=== PATIENT | male | born 1945 | race Caucasian/White ===

== ENCOUNTER 2018-07-04 07:56 | Inpatient (IN) | payer MEDICARE ==
[2018-07-04 08:14] LABS: #Basophils 0.1 thou/uL (0.0-0.2); #Eosinphils 0.1 thou/uL (0.0-0.7); #Lymphocytes 2.5 thou/uL (1.20-3.40); #Monocytes 0.8 thou/uL (0.11-0.59); #Neutrophils 3.7 thou/uL (1.40-6.50); %Eosinophils 1.6 % (0.0-10.0); %Lymphocytes 34.3 % (21.0-51.0); %Monocytes 11.4 % (0.0-10.0); %Neutrophils 51.8 % (42.0-75.0); Hemoglobin 16.9 g/dL (14.0-18.0); Mean Corpuscular HGB CONC 32.8 g/dL (32.0-36.0); Mean Corpuscular Hemoglobin 29.7 pg (27.0-31.0); Mean Corpuscular Volume 90.5 fL (78.0-98.0); Mean Platelet Volume 6.8 fL (7.4-10.4); Platelet Count 251 thou/uL (130-400); RBC Distribution Width 12.9 % (11.5-14.5); Red Blood Cell (RBC) Count 5.68 mill/uL (4.70-6.10); White Blood Cell (WBC) Count 7.2 thou/uL (4.8-10.8)
--- NOTE | 2018-07-04 08:32 | RAD ---
Chest AP view INDICATION: Chest pain and irregular heartbeat COMPARISON: None FINDINGS: Lungs:The lungs are clear Cardiac silhouette pulmonary vasculature:The cardiomediastinal silhouette appears within normal limit s. Pleural spaces:No pleural effusion or pneumothorax is demonstrated. Upper abdomen:No abnormality seen. Osseous structures: No acute osseous abnormality. IMPRESSION: No acute cardiopulmonary abnormality.
[2018-07-04 08:50] LABS: ALT (SGPT) 28 U/L (8-55); AST (SGOT) 18 U/L (5-34); Albumin 4.3 g/dL (3.4-4.8); Alkaline Phosphatase 74 U/L (40-150); Anion Gap 12 mmol/L (10-20); BUN (Urea Nitrogen) 17 mg/dL (8.4-25.7); Bilirubin, Total 1.9 mg/dL (0.2-1.2); CK (CPK) 88 U/L (30-200); Calc. Creatinine Clearance 0 mL/min (70-130); Calcium 9.4 mg/dL (7.8-10.44); Carbon Dioxide 26 mmol/L (23-31); Chloride 106 mmol/L (98-107); Estimated GFR-MDRD 64; Globulin 2.6 g/dL (2.4-3.5); Glucose 108 mg/dL (83-110); Lipase 169 U/L (8-78); Potassium 3.4 mmol/L (3.5-5.1); Protein, Total 6.9 g/dL (5.8-8.1); Sodium 141 mmol/L (136-145)
[2018-07-04 09:11] LABS: CKMB 2.6 ng/mL (0-6.6)
[2018-07-04] MEDS ORDERED: Diltiazem 125 MG in Sodium Chloride 0.9% 100 ML IVPB SCH ×3 (09:30→13:00)
--- NOTE | 2018-07-04 10:10 | PDOC.FPRHP ---
- History of Present Illness Chief Complaint: chest discomfort, palpitations History of Present Illness: 72 yo M w/ PMH of HTN and HLD w/ previous episode of a-fib 15 years ago presents to [facility] for chest discomfort and irregular heart beat that he first noticed yesterday evening. He denies associated NVDC, SOB, cough, fever, chills. On his previous episode of atrial fib he spontaneously coonverted and was never initiated on oral AC. He is currently resting comfortably in bed and does not report continued chest pressure or discomfort. His EKG showed a rate of 138 and he was subsequently given 20mg dilt IVP and his HR decreased to 110- 120s. ED Course: 20 mg IV dilt, 5mg/hr dilt drip - Allergies/Adverse Reactions Allergies Allergy/AdvReac Type Severity Reaction Status Date / Time No Known Allergies Allergy Verified 07/04/18 11:55 - Home Medications Medication Instructions Recorded Confirmed Type Aspirin [Aspir-Low] 162 mg PO DAILY 07/04/18 07/04/18 History Atorvastatin Calcium 10 mg PO HS 07/04/18 07/04/18 History Hydrochlorothiazide 50 mg PO DAILY 07/04/18 07/04/18 History - History PMHx: HTN, HLD, previous a fib PSHx: shoulder arhthroscopy FHx: NA Social: Non smoker, non drinker, no drugs. Worked as manufacturing design engineer. Recently relocated from [place]. - Review of Systems General: denies: fever/chills Eyes: denies: vision changes Respiratory: denies: cough, shortness of breath Cardiovascular: reports: chest pain, palpitation. denies: edema Gastrointestinal: denies: nausea, vomiting, diarrhea, constipation, abdominal pain Skin: denies: jaundice Musculoskeletal: denies: pain, tenderness Neurological: denies: numbness, syncope, weakness - Vital signs BP: 112/85 HR: 120 RR: 18 Tmax: 97.9 Pox: 98% on RA Wt: approx 75kG - Physical Exam Constitutional: NAD, awake, alert and oriented HEENT: normocephalic and atraumatic, PERRLA, EOMI, conjunctiva clear, grossly normal vision, grossly normal hearing Neck: supple, trachea midline, no LAD, no JVD, no bruits Heart: normal S1/S2, no murmurs/rubs/gallops, pulses present, no edema, other ( Irregularly irregular rate and rhythm) Lungs: CTAB, no respiratory distress, good air movement, no wheezing, no retractions Abdomen: soft, non-tender, bowel sounds present, no masses/distention, no hernias Musculoskeletal: ROM grossly normal Neurological: no focal deficit Skin: capillary refill <2 seconds Heme/Lymphatic: no petechia Psychiatric: normal mood and affect FMR H&P: Results - Labs Result Diagrams: 07/05/18 06:10 07/05/18 06:10 Lab results: WBC 7.2 thou/uL (4.8-10.8) 07/04/18 08:03 Hgb 16.9 g/dL (14.0-18.0) 07/04/18 08:03 Hct 51.4 % (42.0-52.0) 07/04/18 08:03 MCV 90.5 fL (78.0-98.0) 07/04/18 08:03 Plt Count 251 thou/uL (130-400) 07/04/18 08:03 Neutrophils % 51.8 % (42.0-75.0) 07/04/18 08:03 Sodium 141 mmol/L (136-145) 07/04/18 08:03 Potassium 3.4 mmol/L (3.5-5.1) L 07/04/18 08:03 Chloride 106 mmol/L (98-107) 07/04/18 08:03 Carbon Dioxide 26 mmol/L (23-31) 07/04/18 08:03 BUN 17 mg/dL (8.4-25.7) 07/04/18 08:03 Creatinine 1.12 mg/dL (0.7-1.3) 07/04/18 08:03 Glucose 108 mg/dL (83-110) 07/04/18 08:03 Calcium 9.4 mg/dL (7.8-10.44) 07/04/18 08:03 Total Bilirubin 1.9 mg/dL (0.2-1.2) H 07/04/18 08:03 AST 18 U/L (5-34) 07/04/18 08:03 ALT 28 U/L (8-55) 07/04/18 08:03 Alkaline Phosphatase 74 U/L (40-150) 07/04/18 08:03 Creatine Kinase 88 U/L (30-200) 07/04/18 08:03 CK-MB (CK-2) 2.6 ng/mL (0-6.6) 07/04/18 08:03 B-Natriuretic Peptide 302.8 pg/mL (0-100) H 07/04/18 08:03 Serum Total Protein 6.9 g/dL (5.8-8.1) 07/04/18 08:03 Albumin 4.3 g/dL (3.4-4.8) 07/04/18 08:03 Lipase 169 U/L (8-78) H 07/04/18 08:03 - EKG Interpretation EKG: Rate 138 atrial fibrillation with RVR - Radiology Interpretation Chest x-ray Status: image reviewed by me, report reviewed by me (EM) FMR H&P: A/P - Problem List (1) Atrial fibrillation with RVR Current Visit: No Status: Acute Code(s): I48.91 - UNSPECIFIED ATRIAL FIBRILLATION (2) HTN (hypertension) Current Visit: No Status: Acute Code(s): I10 - ESSENTIAL (PRIMARY) HYPERTENSION (3) HLD (hyperlipidemia) Current Visit: No Status: Acute Code(s): E78.5 - HYPERLIPIDEMIA, UNSPECIFIED (4) Elevated lipase Current Visit: No Status: Acute Code(s): R74.8 - ABNORMAL LEVELS OF OTHER SERUM ENZYMES (5) Elevated bilirubin Current Visit: No Status: Acute Code(s): R17 - UNSPECIFIED JAUNDICE (6) Elevated troponin Current Visit: No Status: Acute Code(s): R74.8 - ABNORMAL LEVELS OF OTHER SERUM ENZYMES - Plan 1) A fib RVR - admit IP telemetry - BP stable - s/p dilt -cont dilt drip and goal rate <100 - Cardiology has been consulted, appreciate recommendations 2) HTN: - hold HCTZ, cont dilt - replace K+ and check mag 3) HLD: resume statin 4) Elevated Lipase - asymptomatic and pt had elevated t bili as well - will repeat LFTs and bilit tomorrow - consider further workup OP 5) Elevated troponin: - trending - likely 2/2 a fib RVR/demand - cards consulted appreciate recommendations 6) Elevated BNP - echo ordered and pending Dispo: Fair, will admit to telemetry and cont dilt drip. Cards consulted, appreciate recommendations. Disposition/LOS: PCP: CC PPX: Lovenox GI: Tums PRN Code Status: Full Dispo: fair, expected LOS >2 days, dc plan home FMR H&P: Upper Level - Plan Date/Time: 07/04/18 1009 I, [], have evaluated this patient and agree with findings/plan as outlined by business analyst intern resident. Pertinent changes/additions are listed here. Addendum - Attending - Attending Attestation Date/Time: 07/05/18 [id number] I personally evaluated the patient and discussed the management with Dr. Benitez yesterday. I agree with the History, Examination, Assessment and Plan documented above with any addition or exceptions noted below.
[2018-07-04] MEDS ORDERED: Ondansetron PF 4 MG/2 ML Vial IVP PRN (11:48)
[2018-07-04] MEDS ORDERED: Calcium Carbonate 500 MG ChewTAB PO PRN (11:48)
[2018-07-04] MEDS ORDERED: Ondansetron ODT 4 MG TAB PO PRN (11:48)
[2018-07-04] MEDS ORDERED: Potassium Chloride 20 MEQ TAB PO SCH (12:00)
[2018-07-04 12:50] LABS: Troponin I 0.045 ng/mL (< 0.028)
[2018-07-04] MEDS ORDERED: Magnesium 2 GM/NS 0.9% 100 ML 2 GM in Premix Bag 1 BAG IVPB SCH (13:45)
[2018-07-04] MEDS ORDERED: Magnesium 2 GM/50 ML 2 GM in Premix Bag 1 BAG IVPB SCH (13:45)
[2018-07-04 15:18] LABS: Troponin I 0.049 ng/mL (< 0.028)
[2018-07-04] MEDS: Dronedarone HCl 400 MG TAB PO SCH (16:58)
[2018-07-04] MEDS: Enoxaparin Sodium 100 MG/ML SYRINGE SC SCH (20:52)
--- NOTE | 2018-07-04 20:52 | CON ---
DATE OF CONSULTATION: 07/04/2018 REASON FOR CONSULTATION: Atrial fibrillation with a rapid rate. HISTORY OF PRESENT ILLNESS: Mr. Christian is a very pleasant 72-year-old gentleman. The patient states when he went to bed last night, he knew something does not feel right. He was not aware of his heart racing, but it seemed to be irregular. When he woke up this morning, he did not feel well still, the pulse felt irregular. He has a vague discomfort in his chest, vague feeling of tightness, but no pain. Ultimately, he decided to go to the emergency room, where he was found to be in atrial fibrillation with a rapid rate. He was given intravenous diltiazem. The patient's rate initially came down with diltiazem 20 mg IV followed by 5 mg/hour, but gradually the heart rate came back up. Heart rate is better now after additional diltiazem 10 mg IV bolus and another 5 mg/hour. The patient had history of atrial fibrillation episode 15 years ago. There is some consideration for putting him on Coumadin at that time, but the patient did not wish to do that. He said he also underwent cardiac catheterization, was told that he had some coronary artery disease. Stent was advised according to the patient, but he did not want to do it as he did not have much in the way of symptoms. He has done very well from a cardiac standpoint up until the last night. OTHER PAST HISTORY: Hypertension controlled with hydrochlorothiazide. ALLERGIES: NONE KNOWN. MEDICATIONS: He takes: 1. Atorvastatin 10 mg a day. 2. Hydrochlorothiazide 50 mg a day. 3. Aspirin 162 mg a day. SOCIAL HISTORY: No significant alcohol or tobacco. REVIEW OF SYSTEMS: CONSTITUTIONAL: No significant weight gain or loss. VISION: No changes. HEARING: No changes. PULMONARY: No cough or wheezing. CARDIAC: As outlined above. GASTROINTESTINAL: No nausea, vomiting, or diarrhea. SKIN: No rashes. NEUROLOGIC: No unilateral weakness or numbness. PSYCHIATRIC: No unusual depression or anxiety. HEMATOLOGIC: No unusual bruising. GENITOURINARY: No burning with urination. PHYSICAL EXAMINATION: GENERAL: This is a delightful gentleman. VITAL SIGNS: Blood pressure is 122/96 and pulse is 120, asymptomatic at that rate. HEENT: Eyes, sclerae nonicteric. Mouth, mucous membranes moist. NECK: Supple. No lymphadenopathy. LUNGS: Clear. No wheezing, rales, or rhonchi. CARDIAC: Irregularly irregular. He is tachycardic. There is no murmur, rub, or gallop. ABDOMEN: Soft and nontender. EXTREMITIES: No clubbing or cyanosis. There is no significant edema. Good peripheral pulses. Good posterior tibial and dorsalis pedis. SKIN: Warm and dry. PSYCHIATRIC: Mood and affect normal. LABORATORY DATA: Troponin levels indeterminate at 0.090. Potassium is 3.4. IMAGING STUDIES: EKG, atrial fibrillation with a rapid rate. ASSESSMENT: 1. Atrial fibrillation with a rapid ventricular response. 2. History of hypertension. 3. History of coronary artery disease according to the patient. 4. CHADS-VASc 3 based on age, hypertension, and coronary artery disease. PLAN: 1. Anticoagulate with enoxaparin, ultimately consider Eliquis or similar medicine. 2. Intravenous diltiazem now. 3. Add Multaq. 4. The patient is not converted to sinus rhythm tomorrow. Plan transesophageal echo with cardioversion. Discussed the risks of this with this gentleman. He understands and wishes to proceed. This will not be necessary if he converts to sinus rhythm. 5. Replete hypokalemia. 6. We will also give magnesium. Job ID: [id number]
[2018-07-04] MEDS ORDERED: Enoxaparin Sodium 40 MG/0.4 ML SYRINGE SC SCH ×2 (21:00)
[2018-07-05 06:47] LABS: Mean Corpuscular HGB CONC 33.4 g/dL (32.0-36.0); Mean Corpuscular Hemoglobin 30.3 pg (27.0-31.0); Mean Corpuscular Volume 90.9 fL (78.0-98.0); Mean Platelet Volume 7.2 fL (7.4-10.4); Platelet Count 225 thou/uL (130-400); Red Blood Cell (RBC) Count 5.29 mill/uL (4.70-6.10); White Blood Cell (WBC) Count 6.9 thou/uL (4.8-10.8)
[2018-07-05 07:04] LABS: ALT (SGPT) 24 U/L (8-55); AST (SGOT) 15 U/L (5-34); Albumin 3.8 g/dL (3.4-4.8); Alkaline Phosphatase 72 U/L (40-150); Anion Gap 12 mmol/L (10-20); BUN (Urea Nitrogen) 17 mg/dL (8.4-25.7); Bilirubin, Total 2.5 mg/dL (0.2-1.2); Calc. Creatinine Clearance 0 mL/min (70-130); Calcium 8.8 mg/dL (7.8-10.44); Carbon Dioxide 27 mmol/L (23-31); Chloride 105 mmol/L (98-107); Cholesterol 132 mg/dl (< 200 Desired); Estimated GFR-MDRD 64; Globulin 2.5 g/dL (2.4-3.5); Glucose 104 mg/dL (83-110); HDL Cholesterol 33 mg/dL (>60 Neg Risk); LDL Cholesterol, Calculated 69 mg/dL; Potassium 3.2 mmol/L (3.5-5.1); Protein, Total 6.3 g/dL (5.8-8.1); Sodium 141 mmol/L (136-145); Triglycerides 150 mg/dL (Less than 150)
[2018-07-05] MEDS: Dronedarone HCl 400 MG TAB PO SCH ×2 (08:00→16:25)
[2018-07-05] MEDS: Enoxaparin Sodium 100 MG/ML SYRINGE SC SCH (08:00)
[2018-07-05 08:11] LABS: Band 1 % (5-11); Lymphocytes 33 % (21-51); MDiff Complete? YES; Monocytes 7 % (0-10); Neutrophil 59 % (42-75); RBC Morphology Normal
[2018-07-05] MEDS ORDERED: Potassium Chloride 20 MEQ TAB PO SCH (08:15)
[2018-07-05] MEDS ORDERED: Enoxaparin Sodium 40 MG/0.4 ML SYRINGE SC SCH (09:00)
[2018-07-05] MEDS ORDERED: PROPOFOL 0 ML ONE (10:44)
[2018-07-05] MEDS ORDERED: Ketamine 50 MG/ML (10ML VIAL) ONE (10:44)
--- NOTE | 2018-07-05 10:50 | PDOC.FM ---
- Subjective Subjective: TERESA overnight. Pt remains in a fib @ rate of 100-120. Denies symptoms. No cp, sob, NVDC. - Objective Vital Signs & Weight: Vital Signs (12 hours) Temp Pulse Resp BP Pulse Ox 07/05/18 07:37 97.6 F 61 20 102/74 94 L 07/05/18 04:00 98.1 F 79 20 93/55 L 94 L 07/05/18 00:00 99 20 104/72 Weight Weight 207.3 g I&O: 07/04/18 07/05/18 07/06/18 06:59 06:59 06:59 Intake Total 720 Output Total 400 Balance 320 Result Diagrams: 07/05/18 06:10 07/05/18 06:10 Phys Exam - Physical Examination Constitutional: NAD HEENT: PERRLA, sclera anicteric Neck: no nodes, no JVD Respiratory: no wheezing, no rales, no rhonchi, clear to auscultation bilateral Cardiovascular: no significant murmur, no rub, irregular Gastrointestinal: soft, non-tender, no distention, positive bowel sounds Musculoskeletal: no edema, pulses present Neurological: non-focal, moves all 4 limbs Psychiatric: normal affect Dx/Plan (1) Atrial fibrillation with RVR Code(s): I48.91 - UNSPECIFIED ATRIAL FIBRILLATION Status: Acute (2) HTN (hypertension) Code(s): I10 - ESSENTIAL (PRIMARY) HYPERTENSION Status: Acute (3) HLD (hyperlipidemia) Code(s): E78.5 - HYPERLIPIDEMIA, UNSPECIFIED Status: Acute (4) Elevated lipase Code(s): R74.8 - ABNORMAL LEVELS OF OTHER SERUM ENZYMES Status: Acute (5) Elevated bilirubin Code(s): R17 - UNSPECIFIED JAUNDICE Status: Acute (6) Elevated troponin Code(s): R74.8 - ABNORMAL LEVELS OF OTHER SERUM ENZYMES Status: Acute - Plan Plan: 1) A fib RVR - admit IP telemetry - BP stable - s/p dilt -cont dilt drip and goal rate <100 - Cardiology has been consulted, appreciate recommendations - will plan for LION and cardioversion today 2) HTN: - hold HCTZ, cont dilt - replace K+ and check mag - replace K+ 3) HLD: resume statin, increase to moderate to high intensity 4) Elevated Lipase - asymptomatic and pt had elevated t bili as well - will repeat LFTs and bilit tomorrow - consider further workup OP - increase in tBili, pt remains asymptomatic 5) Elevated troponin: - trending - likely 2/2 a fib RVR/demand - cards consulted appreciate recommendations 6) Elevated BNP - echo ordered and pending Dispo: Fair, cont dilt for rate control and await LION and cardioversion scheduled for this afternoon. Will start mod intensity statin this evening. Addendum - Attending - Attending Attestation Date/Time: 07/05/18 1656 I personally evaluated the patient and discussed the management with Dr. Rowley. I agree with the History, Examination, Assessment and Plan documented above with any addition or exceptions noted below.
[2018-07-05] MEDS ORDERED: PROPOFOL 20 ML ONE (13:49)
[2018-07-05 15:42] VITALS: BP 127/94; TEMP 97.5
[2018-07-05 17:52] VITALS: BMI 29.7
[2018-07-05] MEDS ORDERED: Metoprolol Tartrate 50 MG TAB PO SCH ×2 (18:00→21:00)
--- NOTE | 2018-07-05 18:14 | PRG ---
DATE OF SERVICE: 07/05/2018 SUBJECTIVE: Mr. Christian spontaneously converted to sinus rhythm today. We brought him back down for a possible cardioversion and just before the transesophageal echo started, he converted to sinus rhythm. OBJECTIVE: GENERAL: The patient is asymptomatic. He is doing well. VITAL SIGNS: Now his blood pressure 127/94, pulse 77 regular. LUNGS: Clear. CARDIAC: Normal S1 and normal S2. ABDOMEN: Soft and nontender. EXTREMITIES: There is no edema. ASSESSMENT: 1. Paroxysmal atrial fibrillation. 2. History of hypertension. 3. Age 72. PLAN: 1. He is currently CHADS-VASc 2. He will be CHADS-VASc 3 this summer. Plan, recommended long-term anticoagulation with Eliquis 5 mg orally twice a day. 2. Toprol-XL 50 mg a day. 3. Stop aspirin. 4. Can come back and see us in the office in 2 or 3 weeks. The patient is reluctant to start anticoagulation. 5. He has approximately 3% risk of stroke per year. I would recommend anticoagulation. Job ID: [id number]
--- NOTE | 2018-07-05 18:35 | PDOC.EVN ---
Event Note - Event Note Event Note: Pt converted to NSR while waiting for cardioversion. Discussed with pt importance of continued OP f/u and establishing with PCP given elevated lipase and Bili, pt agreeable. Cards has recommended eliquis BID and toprol XL 50mg/ day. Rx sent to pharmacy, pt ready for discharge.
[2018-07-05] MEDS ORDERED: Atorvastatin Calcium 20 MG TAB PO SCH (21:00)
[2018-07-05] MEDS ORDERED: Apixaban 5 MG TAB PO SCH (21:00)
[2018-07-06] MEDS ORDERED: Potassium Chloride 20 MEQ TAB PO SCH (08:00)
== END 2018-07-05 18:58 | disposition home or self-care (01) | DRG 309 ==
LOC: ERS 07:56 → 2SW 11:46 → OBSVTOIN 11:46
PROVIDERS: ADMIT Student in an Organized Health Care Education/Training Program; ATTEND Student in an Organized Health Care Education/Training Program
DX: I48.0 Paroxysmal atrial fibrillation (principal); R17 Unspecified jaundice; I10 Essential (primary) hypertension; E78.5 Hyperlipidemia, unspecified; R74.8 Abnormal levels of other serum enzymes; I25.10 Atherosclerotic heart disease of native coronary artery without angina pectoris; E87.6 Hypokalemia; Z79.82 Long term (current) use of aspirin; Z98.890 Other specified postprocedural states
CPT/HCPCS: 36415; 71045; 80053; 80061; 82550; 82553; 83690; 83735; 83880; 84443; 84484; 85007; 85025; 85027; 93005; 93010; 93306; 96365; 96376; J1650; J2704; J3475; J3490

== ENCOUNTER 2019-10-01 22:47 | Inpatient (IN) | payer MEDICARE, OTHER ==
[2019-10-01 23:15] LABS: #Basophils 0.1 thou/uL (0.0-0.2); #Eosinphils 0.1 thou/uL (0.0-0.7); #Lymphocytes 2.7 thou/uL (1.20-3.40); #Monocytes 0.8 thou/uL (0.11-0.59); #Neutrophils 3.4 thou/uL (1.40-6.50); %Basophils 1.7 % (0.0-1.0); %Eosinophils 1.8 % (0.0-10.0); %Monocytes 11.6 % (0.0-10.0); %Neutrophils 46.8 % (42.0-75.0); Hemoglobin 16.3 g/dL (14.0-18.0); Mean Corpuscular HGB CONC 33.6 g/dL (32.0-36.0); Mean Corpuscular Hemoglobin 30.2 pg (27.0-31.0); Mean Corpuscular Volume 89.9 fL (78.0-98.0); Mean Platelet Volume 7.1 fL (7.4-10.4); Platelet Count 215 thou/uL (130-400); RBC Distribution Width 12.8 % (11.5-14.5); Red Blood Cell (RBC) Count 5.39 mill/uL (4.70-6.10); White Blood Cell (WBC) Count 7.2 thou/uL (4.8-10.8)
--- NOTE | 2019-10-01 23:28 | RAD ---
XR Chest 1 View Portable HISTORY: Atrial fibrillation, chest pain, tachycardia COMPARISON: 07/04/2018 FINDINGS: The heart size is normal. The aorta is tortuous. The lungs are well expanded without focal areas of consolidation, pneumothorax or pleural effusions. IMPRESSION: No radiographic evidence of acute cardiopulmonary process.
[2019-10-01 23:30] LABS: ALT (SGPT) 24 U/L (8-55); AST (SGOT) 22 U/L (5-34); Albumin 4.2 g/dL (3.4-4.8); Alkaline Phosphatase 67 U/L (40-110); Anion Gap 13 mmol/L (10-20); BUN (Urea Nitrogen) 19 mg/dL (8.4-25.7); Bilirubin, Total 1.7 mg/dL (0.2-1.2); Calc. Creatinine Clearance 0 mL/min (70-130); Calcium 9.4 mg/dL (7.8-10.44); Carbon Dioxide 24 mmol/L (23-31); Chloride 106 mmol/L (98-107); Estimated GFR-MDRD 58; Globulin 2.6 g/dL (2.4-3.5); Glucose 99 mg/dL (83-110); Potassium 3.7 mmol/L (3.5-5.1); Protein, Total 6.8 g/dL (5.8-8.1); Sodium 139 mmol/L (136-145)
[2019-10-01] MEDS ORDERED: Diltiazem 125 MG/25 ML ONE (23:37)
[2019-10-01 23:53] LABS: CKMB 1.8 ng/mL (0-6.6)
[2019-10-02] MEDS ORDERED: Metoprolol Tartrate 5 MG/5 ML VIAL IVP SCH (00:46)
[2019-10-02] MEDS ORDERED: Diltiazem 125 MG in Sodium Chloride 0.9% 100 ML IVPB SCH ×2 (01:00→08:53)
[2019-10-02] MEDS ORDERED: Apixaban 5 MG TAB PO SCH (01:10)
[2019-10-02 01:41] VITALS: BMI 30.2
--- NOTE | 2019-10-02 01:45 | HP ---
REASON FOR ADMISSION: Palpitation. HISTORY OF PRESENT ILLNESS: This is a 74-year-old male patient, who is known to have paroxysmal atrial fibrillation. Today, he felt a bit of chest tightness. He does have a device that can detect atrial fibrillation and sure enough when he placed that device and connected to his phone davidson, it showed an atrial fibrillation with a heart rate of 140 beats per minute. He did not feel too bad, but he was prompted by his son to come to the hospital. He has Eliquis, but does not take it on a regular basis. He did take one tablet before arriving to the hospital. Reviewing his records, the patient was admitted to our hospital approximately a year and three months ago with similar presentation. He was seen by Dr. Leary of Cardiology. He was scheduled for cardioversion and LION; however, before undergoing that procedure, he converted to sinus rhythm. PAST MEDICAL HISTORY: 1. Atrial fibrillation. 2. High blood pressure. 3. High cholesterol. SOCIAL HISTORY: Does not smoke. Does not drink alcohol. FAMILY HISTORY: Negative for heart disease. REVIEW OF SYSTEMS: All systems reviewed except the above-mentioned palpitation, found to be negative. PHYSICAL EXAMINATION: GENERAL: Awake, alert, and oriented, does not appear in distress. VITAL SIGNS: His blood pressure is 113/81, heart rate between 106 to 130, and saturating 97% room air. HEENT: Head is nontraumatic and normocephalic. Pupils equal and reactive. Extraocular movements are intact. Nonicteric sclerae. Well injected conjunctivae. Oral mucosa normal. Nasal mucosa normal. NECK: Supple. No adenopathy. No murmur. Thyroid is not palpable. Trachea is midline. No supraclavicular lymphadenopathy. HEART: S1 and S2. Irregular. No murmur. No gallops. No friction rubs. No displacement of PMI. LUNGS: Clear to auscultation bilaterally. No wheezes. No rhonchi. No crackles. ABDOMEN: Bowel sounds are positive. Nontender abdomen. No visceromegaly. No lower extremity edema. No cyanosis. NEURO: Cranial nerves 2 through 12 within normal limits. Normal motor function. Normal sensory function. Normal reflexes. LABORATORY DATA: Blood work shows WBC of 7.2, hemoglobin of 16.3, and platelets of 215. Sodium 139, potassium 3.7, bicarb of 24, BUN 19, and creatinine 1.21. A chest x-ray shows no cardiopulmonary process. EKG shows rapid atrial fibrillation. ASSESSMENT AND PLAN: This is a 74-year-old male patient, who is presenting with recurrence of his atrial fibrillation. He was started on a Cardizem drip in the ER, but his blood pressure did drop, so currently he is on low-dose Cardizem of 2.5 per hour. His heart rate remains uncontrolled, but on the other hand, patient is not feeling any chest pain, and he is not short of breath. Cardiac. The patient will be admitted to telemetry. I will administer IV Lopressor, see if he responds to that. His blood pressure is currently higher than before and improved, so we can try IV Lopressor and see if that helps him. Meanwhile, will be cycle his cardiac enzymes. We will keep him on the low-dose Cardizem drip. We will ask Cardiology to see him, we will restart him on his Eliquis. He did get his initial dose at home and we will give him a dose tonight and start him on Eliquis b.i.d. For deep venous thrombosis prophylaxis, he has been on Eliquis. I am awaiting his med rec to be done, so I could reconcile it. I did discuss with him his code status. He wishes to be a full code. Job ID: [id number]
[2019-10-02 02:07] LABS: #Basophils 0.1 thou/uL (0.0-0.2); #Eosinphils 0.2 thou/uL (0.0-0.7); #Lymphocytes 2.7 thou/uL (1.20-3.40); #Monocytes 0.7 thou/uL (0.11-0.59); #Neutrophils 3.6 thou/uL (1.40-6.50); %Basophils 1.5 % (0.0-1.0); %Eosinophils 2.6 % (0.0-10.0); %Lymphocytes 36.8 % (21.0-51.0); %Monocytes 9.9 % (0.0-10.0); %Neutrophils 49.3 % (42.0-75.0); Hemoglobin 16.1 g/dL (14.0-18.0); Mean Corpuscular HGB CONC 33.3 g/dL (32.0-36.0); Mean Corpuscular Hemoglobin 30.2 pg (27.0-31.0); Mean Corpuscular Volume 90.7 fL (78.0-98.0); Mean Platelet Volume 7.4 fL (7.4-10.4); Platelet Count 210 thou/uL (130-400); RBC Distribution Width 12.9 % (11.5-14.5); Red Blood Cell (RBC) Count 5.31 mill/uL (4.70-6.10); White Blood Cell (WBC) Count 7.4 thou/uL (4.8-10.8)
[2019-10-02 02:37] LABS: Anion Gap 13 mmol/L (10-20); BUN (Urea Nitrogen) 18 mg/dL (8.4-25.7); Calc. Creatinine Clearance 79 mL/min (70-130); Calcium 9.2 mg/dL (7.8-10.44); Carbon Dioxide 23 mmol/L (23-31); Chloride 109 mmol/L (98-107); Estimated GFR-MDRD 66; Glucose 103 mg/dL (83-110); Potassium 3.8 mmol/L (3.5-5.1); Sodium 141 mmol/L (136-145)
[2019-10-02] MEDS ORDERED: Metoprolol Tartrate 5 MG/5 ML VIAL IVP PRN (07:22)
[2019-10-02] MEDS: Apixaban 5 MG TAB PO SCH ×2 (08:46→20:40)
[2019-10-02] MEDS ORDERED: Magnesium 2 GM/50 ML 2 GM in Premix Bag 1 BAG IVPB SCH (09:00)
[2019-10-02] MEDS ORDERED: Potassium Chloride 20 MEQ TAB PO SCH (09:00)
--- NOTE | 2019-10-02 09:40 | CON ---
DATE OF CONSULTATION: 10/02/2019 REASON FOR CONSULTATION: Recurrent atrial fibrillation with a rapid ventricular response. HISTORY OF PRESENT ILLNESS: Mr. Christian is a 74-year-old man. He initially presented with atrial fibrillation in June of 2018. At that time, he had atrial fibrillation with a rapid ventricular response. The patient was given anticoagulation and intravenous diltiazem. We actually had him down the next day to do a transesophageal echo and cardioversion, when he converted spontaneously and was released home. Due to his CHADS-VASc score, he was advised to take Eliquis twice a day, but he did not wish to do that. He declined that. Therefore, we gave him Eliquis to take if he had recurrent atrial fibrillation. The patient yesterday had the onset of feeling his heart racing or at least it felt irregular. He had a vague discomfort in his chest. He had a monitor that showed he was in atrial fibrillation with a rapid rate. On his home davidson, his heart rate was 140. The patient now is resting comfortably. He is on low-dose diltiazem. MEDICATIONS: 1. The patient was taking lisinopril. 2. He was taking hydrochlorothiazide. 3. He was taking atorvastatin. PAST MEDICAL HISTORY: The patient did have a history of coronary artery disease. He said he had a catheterization in the past, they discussed a stent with him, but he said he declined it. SOCIAL HISTORY: No alcohol or tobacco. REVIEW OF SYSTEMS: CONSTITUTIONAL: No significant weight gain or loss. VISION: No changes. HEARING: No changes. PULMONARY: No cough or wheezing. GASTROINTESTINAL: No nausea, vomiting, or diarrhea. SKIN: No rashes. ALLERGIES: NONE KNOWN. FAMILY HISTORY: Negative for heart disease at a young age. PHYSICAL EXAMINATION: GENERAL: This is a pleasant 74-year-old gentleman, resting comfortably, asymptomatic now. Blood pressure 108/58. Pulse is still fast, 120 to 130, atrial fibrillation. LUNGS: Clear. CARDIAC: Irregularly irregular. There is no murmur, rub, or gallop. ABDOMEN: Soft and nontender. EXTREMITIES: No clubbing or cyanosis. There is no edema. DIAGNOSTIC STUDIES: EKG, atrial fibrillation with a rapid rate. Troponin levels are indeterminate at 0.72. Bilirubin is high at 1.7, that has been high also on the previous admission. Creatinine went from 1.2 to 1.08. ASSESSMENT: 1. Atrial fibrillation with a rapid ventricular response. 2. Underlying coronary artery disease. 3. Echocardiogram done in April 2018, ejection fraction 55% to 60%. 4. Indeterminate troponin, probably demand ischemia. PLAN: 1. I would recommend he take apixaban twice a day due to CHADS-VASc score being elevated. He has vascular disease, hypertension, and age, put him at a CHADS-VASc 4. He says he is reluctant to take that twice a day, but that is my recommendation. 2. Increase diltiazem to 5 mg/hour. 3. Add beta blockers. 4. Replete potassium. 5. We will also give magnesium. 6. If he does not convert to sinus rhythm tomorrow, transesophageal echo and cardioversion. Job ID: [id number]
[2019-10-02] MEDS: Metoprolol Tartrate 25 MG TAB PO SCH ×2 (09:46→20:42)
[2019-10-02] MEDS ORDERED: Sodium Chloride 0.9% 500 ML IV SCH (10:45)
[2019-10-02 13:16] LABS: SARS-CoV-2 MS2 Positive; SARS-CoV-2 N Gene Negative; SARS-CoV-2 S Gene Negative; SARS-CoV-2 by NAA Not Detected (NotDetected); SARS-CoV-2 orf1ab Negative
--- NOTE | 2019-10-02 17:10 | PDOC.HOSPP ---
- Subjective Encounter Date: 10/02/19 Subjective: Doing well. He has no complaints. Reiterates that he is not thrilled about taking the Eliquis twice daily. - Objective Vital Signs & Weight: Vital Signs (12 hours) Temp Pulse Resp BP BP Pulse Ox 10/02/19 16:08 97.2 F L 92 18 103/68 96 10/02/19 11:17 97.7 F 98 16 96/66 96 10/02/19 07:43 97.3 F L 115 H 18 108/58 L 95 Weight Weight 210 lb 8 oz I&O: 10/01/19 10/02/19 10/03/19 06:59 06:59 06:59 Intake Total 178 Output Total 315 Balance -137 Result Diagrams: 10/02/19 02:01 10/02/19 02:01 Hospitalist ROS - Medication Medications: Active Medications Generic Name Dose Route Start Last Admin Trade Name Freq PRN Reason Stop Dose Admin Apixaban 5 mg 10/02/19 09:00 10/02/19 08:46 Eliquis PO 5 mg BID TERRANCE Administration Metoprolol Tartrate 25 mg 10/02/19 09:00 10/02/19 09:46 Lopressor PO 25 mg BID TERRANCE Administration - Exam General Appearance: NAD, awake alert Heart: no murmur, no rubs, irregular Respiratory: CTAB, no wheezes, no rales, no ronchi, normal chest expansion, no tachypnea, normal percussion Gastrointestinal: soft, non-tender, non-distended, normal bowel sounds, no palpable masses, no hepatomegaly, no splenomegaly, no bruit Extremities: no cyanosis, no clubbing, no edema Skin: normal turgor Musculoskeletal: normal tone, normal strength, no muscle wasting Psychiatric: normal affect, normal behavior, A&O x 3 Hosp A/P (1) Atrial fibrillation with RVR Code(s): I48.91 - UNSPECIFIED ATRIAL FIBRILLATION Status: Acute (2) HLD (hyperlipidemia) Code(s): E78.5 - HYPERLIPIDEMIA, UNSPECIFIED Status: Acute (3) HTN (hypertension) Code(s): I10 - ESSENTIAL (PRIMARY) HYPERTENSION Status: Acute (4) Myocardial infarction Code(s): I21.9 - ACUTE MYOCARDIAL INFARCTION, UNSPECIFIED Status: Acute Qualifiers: Myocardial infarction type: type 2 Qualified Code(s): I21.A1 - Myocardial infarction type 2 (5) Elevated bilirubin Code(s): R17 - UNSPECIFIED JAUNDICE Status: Chronic - Plan Atrial fibrillation with rapid ventricular response: Patient had an episode approximately 1 year ago. He is currently on diltiazem drip. He was also given additional beta-blockers. He had borderline hypotension with that today. His lisinopril was not continued. Patient does not spontaneously convert to sinus rhythm tomorrow he will likely undergo electrical cardioversion with cardiology. Continue anticoagulation to the level the patient is comfortable with. Hypertension: Patient had borderline hypotension given the medications for the A. fib. Holding the lisinopril. Holding HCTZ. Hyperlipidemia: Continue rosuvastatin. Hypothyroidism: Continue his home dose of levothyroxine.
[2019-10-02] MEDS ORDERED: Aspirin 81 mg Enteric Coated Tablet PO SCH (21:00)
[2019-10-03] MEDS ORDERED: Levothyroxine Sodium 50 MCG TAB PO SCH ×2 (06:00)
[2019-10-03 07:44] VITALS: BP 130/85; TEMP 97.6
[2019-10-03] MEDS ORDERED: Potassium Chloride 20 MEQ TAB PO SCH (09:00)
[2019-10-03] MEDS ORDERED: Hydrochlorothiazide 25 MG TAB PO SCH (09:00)
[2019-10-03] MEDS ORDERED: Lisinopril 2.5 MG TAB PO SCH ×2 (09:00)
[2019-10-03] MEDS: Apixaban 5 MG TAB PO SCH (09:10)
--- NOTE | 2019-10-03 11:21 | PRG ---
DATE OF SERVICE: 10/03/2019 SUBJECTIVE: Mr. Christian converted spontaneously to a junctional rhythm, then sinus rhythm this morning. The cardioversion was not necessary. The patient is feeling well now. He was started on low-dose beta blockers. OBJECTIVE: LUNGS: Clear. CARDIAC: Normal S1, normal S2. ABDOMEN: Soft, nontender. EXTREMITIES: Only minimal edema. ASSESSMENT: 1. Paroxysmal atrial fibrillation with a rapid ventricular response. 2. Hypertension. 3. Hypokalemia. PLAN: 1. We would recommend increasing lisinopril to 5 mg a day. 2. Aspirin 81 mg a day. 3. Apixaban 5 mg twice a day for at least a month. 4. My recommendation to this gentleman was to continue long-term Eliquis, but he is uncertain if he wishes to do that. 5. Metoprolol succinate 25 mg a day. 6. Stop hydrochlorothiazide and potassium. In view of the lack of diuretic, he should not need the potassium. 7. The patient would be asked to see us in the office in a month. Questions were answered. Explained the situation in detail with the patient. Job ID: [id number]
[2019-10-03] MEDS ORDERED: Aspirin 81 mg Enteric Coated Tablet PO SCH (21:00)
[2019-10-03] MEDS ORDERED: Rosuvastatin 20 MG TAB PO SCH (21:00)
--- NOTE | 2019-10-04 14:39 | DIS ---
DATE OF ADMISSION: 10/02/2019 DATE OF DISCHARGE: 10/03/2019 DISCHARGE DIAGNOSES: 1. Paroxysmal atrial fibrillation. 2. Coronary artery disease. 3. Non-ST elevation myocardial infarction type 2 secondary to demand ischemia related to atrial fibrillation with rapid ventricular response. HISTORY: The patient is a 74-year-old male with a history of prior paroxysmal atrial fibrillation that spontaneously converted immediately prior to beginning getting electro-cardioverted. He was supposed to be on anticoagulation with Eliquis. However, the patient is a bit reluctant to take that at full dose. He was doing well until he had a recurrence of the atrial fibrillation and presented to the emergency department. He was started on IV diltiazem and admitted to the hospital. HOSPITAL COURSE: The patient was seen in consultation by Dr. Leary. The plan was for continued IV diltiazem and DCCV. However, the patient spontaneously cardioverted and felt completely back to his baseline. He was still resistant to taking full dose anticoagulation and Dr. Leary made some recommendations regarding medications and felt the patient was stable for discharge to have outpatient followup. The patient had serial troponins, which were minimally elevated, but downtrending and a normal TSH. PHYSICAL EXAMINATION: VITAL SIGNS: On the day of discharge, temperature is 97.6, pulse 68, respirations 16, O2 saturation 96% on room air, and blood pressure 130/85. He was awake and alert. HEART: Regular. LUNGS: Clear. ABDOMEN: Benign. EXTREMITIES: Had no edema. DISPOSITION: The patient is discharged to home. DIET: He is to have a heart-healthy diet. ACTIVITY: As tolerated. MEDICATIONS: He will be on; 1. Metoprolol 25 mg p.o. daily. 2. Eliquis 5 mg b.i.d. 3. Rosuvastatin 20 mg daily. 4. Levothyroxine 50 mcg daily. 5. Lisinopril 2.5 mg daily. 6. Aspirin 162 mg daily. He is to discontinue his hydrochlorothiazide and potassium. FOLLOWUP: He is to follow up with Dr. Leary as instructed. TIME SPENT: Time spent in discharge activities was greater than 30 minutes. Job ID: [id number] MTDD
== END 2019-10-03 11:26 | disposition home or self-care (01) | DRG 282 ==
LOC: ERS 22:47 → 2NO 10-02 00:06
PROVIDERS: ADMIT Internal Medicine; ATTEND Internal Medicine
DX: I48.0 Paroxysmal atrial fibrillation (principal); I21.A1 Myocardial infarction type 2; Z20.828 Contact with and (suspected) exposure to other viral communicable diseases; E03.9 Hypothyroidism, unspecified; E78.5 Hyperlipidemia, unspecified; E78.00 Pure hypercholesterolemia, unspecified; I10 Essential (primary) hypertension; I25.10 Atherosclerotic heart disease of native coronary artery without angina pectoris; E87.6 Hypokalemia; Z79.899 Other long term (current) drug therapy; Z79.890 Hormone replacement therapy
CPT/HCPCS: 36415; 71045; 80048; 80053; 82553; 84443; 84484; 85025; 87635; 93005; 96365; J3475; J3490; U0003

== ENCOUNTER 2019-12-02 05:32 | Inpatient (IN) | payer MEDICARE, OTHER ==
[2019-12-02 06:03] LABS: #Basophils 0.1 thou/uL (0.0-0.2); #Eosinphils 0.1 thou/uL (0.0-0.7); #Lymphocytes 1.7 thou/uL (1.20-3.40); #Neutrophils 6.3 thou/uL (1.40-6.50); %Basophils 0.7 % (0.0-1.0); %Eosinophils 1.6 % (0.0-10.0); %Lymphocytes 18.3 % (21.0-51.0); %Monocytes 10.8 % (0.0-10.0); %Neutrophils 68.6 % (42.0-75.0); Hemoglobin 16.1 g/dL (14.0-18.0); Mean Corpuscular HGB CONC 33.2 g/dL (32.0-36.0); Mean Corpuscular Hemoglobin 30.2 pg (27.0-31.0); Mean Corpuscular Volume 90.9 fL (78.0-98.0); Mean Platelet Volume 7.4 fL (7.4-10.4); Platelet Count 200 thou/uL (130-400); RBC Distribution Width 12.9 % (11.5-14.5); Red Blood Cell (RBC) Count 5.32 mill/uL (4.70-6.10); White Blood Cell (WBC) Count 9.2 thou/uL (4.8-10.8)
[2019-12-02 06:24] LABS: ALT (SGPT) 20 U/L (8-55); AST (SGOT) 15 U/L (5-34); Albumin 3.9 g/dL (3.4-4.8); Alkaline Phosphatase 69 U/L (40-110); Anion Gap 14 mmol/L (10-20); BUN (Urea Nitrogen) 13 mg/dL (8.4-25.7); CK (CPK) 47 U/L (30-200); Calc. Creatinine Clearance 0 mL/min (70-130); Calcium 8.2 mg/dL (7.8-10.44); Carbon Dioxide 20 mmol/L (23-31); Chloride 110 mmol/L (98-107); Estimated GFR-MDRD 75; Glucose 98 mg/dL (83-110); Lipase 41 U/L (8-78); Potassium 3.6 mmol/L (3.5-5.1); Protein, Total 5.9 g/dL (5.8-8.1); Sodium 140 mmol/L (136-145)
[2019-12-02] MEDS ORDERED: Nitroglycerin 0.4 MG TAB 1 EACH ONE (07:07)
--- NOTE | 2019-12-02 07:30 | PDOC.HHP ---
Hospitalist HPI - History of Present Illness Chest pain, Afib rvr History of Present Illness: PCP: Dr. Rainey ([place]and[place]) The patient is a 74-year-old male with a past medical history significant for atrial fibrillation (on Eliquis), hypertension, hyperlipidemia and hypothyroidism that presents to the emergency department via EMS for the above complaint. Patient reports developing heart palpitations for the past 2 days. He reports that when he checks his pulse, he can feel that is irregular, and he is well aware that he is usually in A. fib when this happens. On Monday, he called his global compensation analyst, and he was instructed to double down on his home dose of metoprolol. He normally takes metoprolol 25 mg every evening, so he started taking it morning and evening. This had no effect on his symptoms. He still reports heart palpitations and an irregular pulse. Monday afternoon, he developed chest pain, located midsternum, described as pressure, increasing in intensity throughout the day, exacerbated with deep inhalation, and relieved by nothing. He reports that he is never had this sensation before. Denies any swelling to lower extremities. Recently stopped his HCTZ. He denies any history of COPD/asthma. No history of DVT/PE. He denies any illicit drug use. He has no family cardiac history. For this reason he called EMS. ED Course: VITAL SIGNS MonDec 02, 2019 05:46 VINOD Schuster Mikayla BP: 157/114, Pulse: 121, Resp: 20, Temp: 98.2 (Oral), Pain: 8, O2 sat: 96 on (Room Air), Time: 12/02/2019 05:46. VITAL SIGNS MonDec 02, 2019 06:09 VINOD Schuster Mikayla BP: 154/111, Pulse: 120, Resp: 20, O2 sat: 96 on (Room Air), Time: 12/02/2019 06:09. VITAL SIGNS MonDec 02, 2019 06:11 VINOD Schuster Mikayla BP: 136/116, MAP: 122, Pulse: 86, Resp: 18, Temp: 98.3 (Oral), Pain: 8, O2 sat: 96 on (Room Air), Time: 12/02/2019 06:11. VITAL SIGNS MonDec 02, 2019 06:17 VINOD Schuster Mikayla BP: 99/79, MAP: 85, Pulse: 75, Resp: 18, O2 sat: 96 on (Room Air), Time: 12/02/2019 06:17. VITAL SIGNS MonDec 02, 2019 06:45 VINOD Schuster Mikayla BP: 143/104, MAP: 117, Pulse: 87, Resp: 22, Temp: 98.2 (Oral), Pain: 9, O2 sat: 96 on (Room Air), Time: 12/02/2019 06:45. VITAL SIGNS MonDec 02, 2019 06:47 VINOD Schuster Mikayla BP: 148/101, MAP: 116, Pulse: 85, Resp: 18, O2 sat: 96 on (Room Air), Time: 12/02/2019 06:47. VITAL SIGNS MonDec 02, 2019 07:13 VINOD Gilliam Jessica BP: 137/105, MAP: 115, Pulse: 103, Resp: 18 (Non-Labored), Pain: 8, O2 sat: 96 on (Room Air), Time: 12/02/2019 07:13. Medication Administration: nitroglycerin sublingual 0.4 mg Sublingual Given 07:13 12/02/2019 Cardizem intravenous 15 mg IV Push Given 06:09 12/02/2019 Hospitalist ROS - Review of Systems Constitutional: denies: fever, chills Cardiovascular: reports: chest pain, palpitations. denies: edema, light headedness Gastrointestinal: denies: nausea, vomiting, abdominal pain Genitourinary: reports: frequency. denies: dysuria, retention Neurological: denies: weakness, change in speech, confusion All other systems reviewed; all pertinent +/- noted in HPI/Subj - Medication Medications: aspirin oral MonDec 02, 2019 06:44 VINOD Schuster Mikayla TABLET, CHEWABLE : Strength - 81 mg : ORAL Patient Dose: 162 mg Oral once a day. lisinopril MonDec 02, 2019 06:44 VINOD Schuster Mikayla tablet : Strength - 10 mg : ORAL Patient Dose: unk. levothyroxine oral MonDec 02, 2019 06:44 VINOD Schuster Mikayla tablet : Strength - 50 mcg : ORAL Patient Dose: 1 tab(s) Oral once a day (in the morning). rosuvastatin MonDec 02, 2019 06:44 VINOD Schuster, Sara tablet : Strength - 20 mg : ORAL Patient Dose: unk. Natural Vitamin D MonDec 02, 2019 06:45 VINOD Schuster Mikayla capsule : Strength - 700 unit-400 unit : ORAL Patient Dose: Unknown. metoprolol tartrate oral MonDec 02, 2019 06:46 VINOD Schuster Mikayla tablet : Strength - 25 mg : ORAL Patient Dose: 1 tab(s) Oral once a day. Eliquis MonDec 02, 2019 06:46 VINOD Schuster Mikayla tablet : Strength - 5 mg : ORAL Patient Dose: UNK [place]: KENAI Hospitalist History - Past Medical History Source: patient, RN notes reviewed Cardiac: reports: AFIB (On Eliquis), HTN, Hyperlipidemia Endocrine: reports: Hypothyroidism - Past Surgical History Past Surgical History: reports: Tonsillectomy, Other (Right shoulder surgery) - Family History Family History: reports: cancer (Mother and father). denies: cardiac disorder - Social History Smoking Status: Never smoker Alcohol: reports: None Drugs: reports: none Living Situation: With Family Activity level: independent ambulation - Exam General Appearance: NAD, awake alert Eye: anicteric sclera ENT: normocephalic atraumatic Neck: supple, symmetric, no JVD Heart: no murmur, no gallops, no rubs, normal peripheral pulses, irregular Heart - other findings: Rate controlled Respiratory: CTAB, no wheezes, no rales, no ronchi, normal chest expansion, no tachypnea Gastrointestinal: soft, non-tender, normal bowel sounds, no bruit, no guarding, no rigidity Extremities: no cyanosis, no edema Skin: no rashes Neurological: no weakness, no focal deficits Musculoskeletal: normal tone, normal strength Psychiatric: normal affect, A&O x 3 Hospitalist Results - Labs Result Diagrams: 12/02/19 05:52 12/02/19 05:52 Lab results: WBC 9.2 thou/uL (4.8-10.8) 12/02/19 05:52 Hgb 16.1 g/dL (14.0-18.0) 12/02/19 05:52 Hct 48.4 % (42.0-52.0) 12/02/19 05:52 MCV 90.9 fL (78.0-98.0) 12/02/19 05:52 Plt Count 200 thou/uL (130-400) 12/02/19 05:52 Neutrophils % 68.6 % (42.0-75.0) 12/02/19 05:52 Sodium 140 mmol/L (136-145) 12/02/19 05:52 Potassium 3.6 mmol/L (3.5-5.1) 12/02/19 05:52 Chloride 110 mmol/L (98-107) H 12/02/19 05:52 Carbon Dioxide 20 mmol/L (23-31) L 12/02/19 05:52 BUN 13 mg/dL (8.4-25.7) 12/02/19 05:52 Creatinine 0.97 mg/dL (0.7-1.3) 12/02/19 05:52 Glucose 98 mg/dL (83-110) 12/02/19 05:52 Calcium 8.2 mg/dL (7.8-10.44) 12/02/19 05:52 Total Bilirubin 2.0 mg/dL (0.2-1.2) H 12/02/19 05:52 AST 15 U/L (5-34) 12/02/19 05:52 ALT 20 U/L (8-55) 12/02/19 05:52 Alkaline Phosphatase 69 U/L (40-110) 12/02/19 05:52 Creatine Kinase 47 U/L (30-200) 12/02/19 05:52 Troponin I 0.025 ng/mL (< 0.028) 12/02/19 05:52 Serum Total Protein 5.9 g/dL (5.8-8.1) 12/02/19 05:52 Albumin 3.9 g/dL (3.4-4.8) 12/02/19 05:52 Lipase 41 U/L (8-78) 12/02/19 05:52 - EKG Interpretation EK lead EKG interpreted by Emergency Department Physician at time of study, 12 lead EKG shows, atrial fibrillation with rapid ventricular response, Rate (beats per minute): 120, with no ectopics, Conduction normal, ST segments normal, T waves normal, Mico normal, Other findings include:, Poor anterior R wave progression, Clinical impression:, dysrhythmia - atrial. - Radiology Interpretation Chest x-ray Status: report reviewed by me Additional Comment: No acute cardiopulmonary process Hospitalist H&P A/P - Problem (1) Chest pain Code(s): R07.9 - CHEST PAIN, UNSPECIFIED Status: Acute (2) Atrial fibrillation with RVR Code(s): I48.91 - UNSPECIFIED ATRIAL FIBRILLATION Status: Acute (3) Hypertension Code(s): I10 - ESSENTIAL (PRIMARY) HYPERTENSION Status: Chronic (4) Hyperlipidemia Code(s): E78.5 - HYPERLIPIDEMIA, UNSPECIFIED Status: Chronic (5) Hypothyroidism Code(s): E03.9 - HYPOTHYROIDISM, UNSPECIFIED Status: Chronic - Plan Plan: [id number] with PMH A. fib, HTN, HLD, hypothyroidism presents for chest pain and heart palpitations. Admit to telemetry floor, observation status. Expected length of stay less than 2 midnights. Presented hypertensive and tachycardic. EKG A. fib RVR, HR 120s, no ST elevation CXR no acute process. Trop 0.025, CK 47 #Chest pain Heart score 5, Wells score 1.5. Trend troponins, check mag level, UA. Continue aspirin and statin. Recent CFO/echo approximately [address] Leary, was awaiting results. Recent FLP, TSHunremarkable Consult cardiology #Atrial fibrillation with RVR Given Cardizem 15 mg IVP, with rate control in ED Takes Eliquis at home, continue Eliquis. Consult cardiology #Hypertension Presented hypertensive. Continue home dose of metoprolol. Add PRN IV antihypertensives. #Hyperlipidemia FLP on 08/08 Cholesterol 125, triglycerides 98, LDL 64, HDL 41 Takes rosuvastatin at home. Continue home dose of rosuvastatin. #Hypothyroidism TSH 1.97 on 10/05 Continue home dose of levothyroxine. SCDs for DVT prophylaxis. No GI prophylaxis. Full code. Designated medical decision-maker is Amy, his spouse at [phone]. Discussed case with Dr. Arellano.
[2019-12-02] MEDS ORDERED: Nitroglycerin 2% Ointment 1 INCH/1 GM Packet ONE (07:45)
[2019-12-02] MEDS ORDERED: Nitroglycerin 0.4 MG TAB (25 Tab Bottle) SL PRN (07:45)
[2019-12-02] MEDS ORDERED: Ondansetron PF 4 MG/2 ML Vial IVP PRN (07:47)
[2019-12-02] MEDS ORDERED: Calcium Carbonate 500 MG ChewTAB PO PRN (07:47)
[2019-12-02] MEDS ORDERED: Ondansetron ODT 4 MG TAB PO PRN (07:47)
[2019-12-02] MEDS ORDERED: Acetaminophen 325 MG TAB PO PRN (07:47)
[2019-12-02] MEDS ORDERED: Senokot S 8.6-50 MG TAB PO PRN (07:47)
[2019-12-02] MEDS ORDERED: Morphine 2 MG/ML VIAL SLOW IVP PRN (07:51)
--- NOTE | 2019-12-02 07:51 | RAD ---
XR Chest 1 View Portable HISTORY: Atrial fibrillation, chest pain COMPARISON: None FINDINGS: The heart size is normal. The aorta is tortuous. The lungs are well expanded without focal areas of consolidation, pneumothorax or pleural effusions. IMPRESSION: No radiographic evidence of acute cardiopulmonary process.
[2019-12-02] MEDS ORDERED: Labetalol HCl 100 MG/20 ML VIAL SLOW IVP PRN (08:25)
[2019-12-02] MEDS ORDERED: Apixaban 5 MG TAB PO SCH (09:00)
[2019-12-02 09:14] LABS: Troponin I 0.014 ng/mL (< 0.028)
[2019-12-02 09:39] LABS: Bacteria/HPF None Seen HPF (None Seen); Bilirubin Negative (Negative); Blood, Urine 1+ (Negative); Clarity Clear (Clear); Glucose, Urine (Dipstick) Normal (Negative); Ketone, Urine Negative (Negative); Leukocyte Negative Leu/uL (Negative); Nitrite Negative (Negative); Protein, Urine (Dipstick) Negative (Neg-Trace); Specific Gravity, Urine 1.015 (1.002-1.036); Squamous Epithelial None Seen HPF (0-3); Urobilinogen Normal mg/dL (Less than 2); WBC/HPF 0-3 HPF (0-3)
[2019-12-02] MEDS: Levothyroxine Sodium 50 MCG TAB PO SCH (13:18)
[2019-12-02] MEDS: Lisinopril 2.5 MG TAB PO SCH (13:18)
[2019-12-02] MEDS: Rosuvastatin 20 MG TAB PO SCH (13:19)
[2019-12-02] MEDS ORDERED: Nitroglycerin 2% Ointment 1 INCH/1 GM Packet TOP SCH (16:00)
[2019-12-02] MEDS ORDERED: Magnesium 2 GM/50 ML 2 GM in Premix Bag 1 BAG IVPB SCH (16:45)
[2019-12-02] MEDS ORDERED: Furosemide 20 MG/2 ML VIAL SLOW IVP SCH (16:45)
[2019-12-02] MEDS ORDERED: Furosemide 40 MG/4 ML VIAL SLOW IVP SCH (17:15)
[2019-12-02] MEDS ORDERED: Potassium Chloride 20 MEQ TAB PO SCH (17:15)
[2019-12-02 19:58] VITALS: BMI 29.3
[2019-12-02] MEDS: Aspirin 81 mg Enteric Coated Tablet PO SCH (20:19)
[2019-12-02] MEDS: Enoxaparin Sodium 100 MG/ML SYRINGE SC SCH (23:42)
[2019-12-02] MEDS: Nitroglycerin 2% Ointment 1 INCH/1 GM Packet TOP SCH (23:55)
--- NOTE | 2019-12-03 00:43 | CON ---
DATE OF CONSULTATION: 12/02/2019 REASON FOR CONSULTATION: Recurrent atrial fibrillation, chest pain. HISTORY OF PRESENT ILLNESS: Mr. Christian is a 74-year-old gentleman. He has history of paroxysmal atrial fibrillation in the past, had been in the hospital several times for this and most recently, he is in the hospital in September. There is consideration for needing to do a cardioversion, but he converted to sinus rhythm. Initially, he was resistant to staying on Eliquis, but agreed with Eliquis and stated he actually has been taking Eliquis twice a day as well as metoprolol. Last Monday, he noticed that he is back in fibrillation, just did not feel well, but over the weekend developed chest pressure and pain and ultimately came to the emergency room. He was found to be in atrial fibrillation with a rapid rate. Patient currently is feeling fine. He is pain-free now. MEDICATIONS: At home, he was takin. Eliquis 5 mg twice a day. 2. Metoprolol succinate 25 mg a day. 3. Aspirin 81 mg a day, just started. 4. Lisinopril 2.5 mg a day. 5. Crestor 20 mg a day. 6. Hydrochlorothiazide. REVIEW OF SYSTEMS: CONSTITUTIONAL: No significant weight gain or loss. VISION: No changes. HEARING: No changes. PULMONARY: No cough or wheezing. GASTROINTESTINAL: No nausea, vomiting, or diarrhea. SKIN: No rashes. PHYSICAL EXAMINATION: GENERAL: This is a 74-year-old gentleman, in no distress. VITAL SIGNS: Blood pressure in the emergency room was 125/90, pulse was variable up to 116. HEENT: Eyes, sclerae nonicteric. Mouth, mucous membranes moist. NECK: Supple. No lymphadenopathy. LUNGS: Clear. CARDIAC: Irregularly irregular. ABDOMEN: Soft and nontender. EXTREMITIES: Warm and dry. No clubbing. No cyanosis. There is no edema. DIAGNOSTIC STUDIES: EKG; atrial fibrillation with a rapid ventricular response, rate of 120 on the initial EKG. No acute changes. BNP was 723. Potassium is 3.6. Troponin levels were negative. ASSESSMENT: 1. Recurrent atrial fibrillation. 2. He has had a previous catheterization showing he has mild coronary artery disease many years ago. The details of that are not available to me. 3. Previously normal left ventricular function. PLAN: 1. We will change from Eliquis to Lovenox in case he needs kind of invasive therapy if necessary. 2. Resume diltiazem. Apparently, he was on a drip for a while, but that was taken off. 3. Echocardiogram. 4. We will continue to follow with you during this hospitalization for further recommendation. Job ID: [id number]
[2019-12-03 05:05] LABS: #Basophils 0.1 thou/uL (0.0-0.2); #Eosinphils 0.1 thou/uL (0.0-0.7); #Lymphocytes 2.2 thou/uL (1.20-3.40); #Monocytes 1.1 thou/uL (0.11-0.59); #Neutrophils 4.1 thou/uL (1.40-6.50); %Basophils 0.8 % (0.0-1.0); %Eosinophils 1.9 % (0.0-10.0); %Lymphocytes 28.6 % (21.0-51.0); %Monocytes 14.5 % (0.0-10.0); %Neutrophils 54.1 % (42.0-75.0); Hemoglobin 15.4 g/dL (14.0-18.0); Mean Corpuscular HGB CONC 33.9 g/dL (32.0-36.0); Mean Corpuscular Volume 91.5 fL (78.0-98.0); Mean Platelet Volume 7.5 fL (7.4-10.4); Platelet Count 181 thou/uL (130-400); RBC Distribution Width 12.8 % (11.5-14.5); Red Blood Cell (RBC) Count 4.96 mill/uL (4.70-6.10); White Blood Cell (WBC) Count 7.5 thou/uL (4.8-10.8)
[2019-12-03 05:27] LABS: ALT (SGPT) 14 U/L (8-55); AST (SGOT) 10 U/L (5-34); Albumin 3.4 g/dL (3.4-4.8); Alkaline Phosphatase 66 U/L (40-110); Anion Gap 13 mmol/L (10-20); BUN (Urea Nitrogen) 14 mg/dL (8.4-25.7); Bilirubin, Total 2.9 mg/dL (0.2-1.2); Calc. Creatinine Clearance 73 mL/min (70-130); Calcium 8.2 mg/dL (7.8-10.44); Carbon Dioxide 26 mmol/L (23-31); Chloride 105 mmol/L (98-107); Estimated GFR-MDRD 61; Globulin 2.5 g/dL (2.4-3.5); Glucose 105 mg/dL (83-110); Potassium 3.7 mmol/L (3.5-5.1); Protein, Total 5.9 g/dL (5.8-8.1); Sodium 140 mmol/L (136-145)
[2019-12-03] MEDS: Furosemide 20 MG/2 ML VIAL SLOW IVP SCH ×2 (06:33→13:56)
[2019-12-03] MEDS: Lisinopril 2.5 MG TAB PO SCH (08:13)
[2019-12-03] MEDS: Levothyroxine Sodium 50 MCG TAB PO SCH (08:13)
[2019-12-03] MEDS: Rosuvastatin 20 MG TAB PO SCH (08:13)
[2019-12-03] MEDS: Nitroglycerin 2% Ointment 1 INCH/1 GM Packet TOP SCH ×2 (08:14→15:11)
[2019-12-03] MEDS: Enoxaparin Sodium 100 MG/ML SYRINGE SC SCH ×2 (08:45→20:38)
[2019-12-03] MEDS ORDERED: Aspirin 81 mg Enteric Coated Tablet PO SCH (09:00)
--- NOTE | 2019-12-03 10:08 | PRG ---
DATE OF SERVICE: 12/03/2019 SUBJECTIVE: Mr. Christian is doing fine. He feels well. No chest pain or pressure. OBJECTIVE: VITAL SIGNS: Blood pressure 133/90; pulse is in the 80s, it is atrial fibrillation, it is irregular. LUNGS: Clear. CARDIAC: Irregularly irregular. ABDOMEN: Soft, nontender. EXTREMITIES: No edema. ASSESSMENT: 1. Recurrent atrial fibrillation. 2. Possible underlying coronary artery disease. 3. Diastolic heart failure. PLAN: Echocardiogram has been done. I will review that. Proceed to cardioversion tomorrow. Discussed risks including stroke, slow heart rates. The patient understands, wishes to proceed. He says he has been taking Eliquis at home and has not missed any doses. Therefore, transesophageal echo is not indicated. He assures me that he definitely was taking the Eliquis or not missing any doses. Job ID: [id number]
[2019-12-03] MEDS ORDERED: Potassium Chloride 20 MEQ TAB PO SCH (12:00)
--- NOTE | 2019-12-03 14:06 | PDOC.HOSPP ---
- Subjective Encounter Date: 12/03/19 Encounter Time: 14:04 Subjective: Patient seen for follow-up regarding atrial fibrillation with rapid ventricular response. Denies chest pain. Reports palpitations. - Objective Vital Signs & Weight: Vital Signs (12 hours) Temp Pulse Resp BP Pulse Ox 12/03/19 11:40 97.6 F 91 16 112/79 95 12/03/19 07:19 97.6 F 96 22 H 133/90 95 12/03/19 03:09 98.1 F 103 H 19 119/74 95 Weight Weight 205 lb 9.6 oz I&O: 12/02/19 12/03/19 12/04/19 06:59 06:59 06:59 Output Total 265 635 Balance -135 -140 Result Diagrams: 12/03/19 04:26 12/03/19 04:26 Additional Labs: I reviewed patient's labs and MAR EKG Reviewed by me: Yes (Telemetry: Atrial fibrillation with rapid ventricular response) Hospitalist ROS - Review of Systems Cardiovascular: reports: palpitations. denies: chest pain, orthopnea, paroxysmal noc. dyspnea, edema, light headedness Gastrointestinal: denies: nausea, vomiting, abdominal pain, diarrhea, constip ation, melena, hematochezia - Medication Medications: Active Medications Generic Name Dose Route Start Last Admin Trade Name Freq PRN Reason Stop Dose Admin Acetaminophen 650 mg 12/02/19 07:47 12/02/19 18:34 Acetaminophen 325 Mg Tab PO 12/03/19 23:59 650 mg Q4H PRN Administration Headache/Fever/Mild Pain (1-3) Aspirin 81 mg 12/02/19 21:00 12/02/19 20:19 Aspirin 81 Mg Enteric Coated Tablet PO 12/03/19 23:59 81 mg HS TERRANCE Administration Diltiazem HCl 60 mg 12/02/19 21:00 12/03/19 11:22 Diltiazem Hcl 30 Mg Tablet PO 12/03/19 23:59 60 mg ACHS TERRANCE Administration Enoxaparin Sodium 100 mg 12/02/19 21:00 12/03/19 08:45 Enoxaparin Sodium 100 Mg/Ml Syringe SC 100 mg 0900,2100 TERRANCE Administration Furosemide 20 mg 12/03/19 06:00 12/03/19 13:56 Furosemide 20 Mg/2 Ml Vial SLOW IVP 20 mg 0600,1400 TERRANCE Administration Levothyroxine Sodium 50 mcg 12/02/19 09:00 12/03/19 08:13 Levothyroxine Sodium 50 Mcg Tab PO 12/03/19 23:59 50 mcg DAILY TERRANCE Administration Lisinopril 2.5 mg 12/02/19 09:00 12/03/19 08:13 Lisinopril 2.5 Mg Tab PO 12/03/19 23:59 2.5 mg DAILY TERRANCE Administration Metoprolol Succinate 25 mg 12/02/19 09:00 12/03/19 08:13 Metoprolol Succinate Xl 25 Mg Tab PO 12/03/19 23:59 25 mg BID TERRANCE Administration Nitroglycerin 0.5 inch 12/02/19 23:59 12/03/19 08:14 Nitroglycerin 2% Ointment 1 Inch/1 Gm Packet TOP Not Given 0800,1600,2359 TERRANCE Pantoprazole Sodium 40 mg 12/03/19 09:00 12/03/19 08:13 Pantoprazole 40 Mg Tab PO 12/03/19 23:59 40 mg DAILY TERRANCE Administration Rosuvastatin Calcium 20 mg 12/02/19 09:00 12/03/19 08:13 Rosuvastatin 20 Mg Tab PO 12/03/19 23:59 20 mg DAILY TERRANCE Administration Sodium Chloride 10 ml 12/02/19 07:45 12/02/19 20:19 Flush - Normal Saline 10 Ml Syringe IVF 10 ml PRN PRN Administration Saline Flush - Exam General Appearance: awake alert Eye: anicteric sclera ENT: moist mucosa Neck: supple Heart: irregular Respiratory: CTAB Gastrointestinal: soft, non-tender Skin: no rashes Psychiatric: normal affect, normal behavior Hosp A/P (1) Atrial fibrillation with RVR Code(s): I48.91 - UNSPECIFIED ATRIAL FIBRILLATION Status: Acute (2) Hyperlipidemia Code(s): E78.5 - HYPERLIPIDEMIA, UNSPECIFIED Status: Chronic (3) Hypertension Code(s): I10 - ESSENTIAL (PRIMARY) HYPERTENSION Status: Chronic (4) Hypothyroidism Code(s): E03.9 - HYPOTHYROIDISM, UNSPECIFIED Status: Chronic (5) Chest pain Code(s): R07.9 - CHEST PAIN, UNSPECIFIED Status: Resolved - Plan Patient clinically improved, no chest pain. Continue to monitor on telemetry. Check TSH. Plan for cardioversion tomorrow noted.
--- NOTE | 2019-12-03 15:01 | PDOC.EVN ---
Event Note - Event Note Event Note: Received communication from Dr. Hali De Souza with [facility] that patient meets inpatient criteria. Will change status to inpatient.
[2019-12-03 16:25] LABS: SARS-CoV-2 MS2 Positive; SARS-CoV-2 N Gene Negative; SARS-CoV-2 S Gene Negative; SARS-CoV-2 by NAA Not Detected (NotDetected); SARS-CoV-2 orf1ab Negative
[2019-12-03] MEDS: Aspirin 81 mg Enteric Coated Tablet PO SCH (20:37)
[2019-12-04] MEDS ORDERED: Sodium Chloride 0.9% 1,000 ML IV SCH (06:00)
[2019-12-04] MEDS: Nitroglycerin 2% Ointment 1 INCH/1 GM Packet TOP SCH ×3 (06:00→15:39)
[2019-12-04] MEDS: Enoxaparin Sodium 100 MG/ML SYRINGE SC SCH ×2 (08:22→20:13)
[2019-12-04] MEDS ORDERED: Lidocaine 1% (PF) 30 ML VIAL ONE (09:28)
[2019-12-04] MEDS ORDERED: PROPOFOL 20 ML ONE (09:28)
[2019-12-04] MEDS ORDERED: Flecainide 50 MG TAB PO SCH (10:00)
--- NOTE | 2019-12-04 17:27 | PDOC.HOSPP ---
- Subjective Encounter Date: 12/04/19 Encounter Time: 09:40 Subjective: Patient seen for follow-up regarding atrial fibrillation. He continues to be in atrial fibrillation, denies any new symptoms. - Objective Vital Signs & Weight: Vital Signs (12 hours) Temp Pulse Resp BP Pulse Ox 12/04/19 15:48 97.6 F 59 L 18 133/85 96 12/04/19 10:48 98.1 F 62 16 144/90 H 94 L 12/04/19 08:20 96 12/04/19 07:33 97.7 F 98 18 127/97 H 96 Weight Weight 205 lb I&O: 12/03/19 12/04/19 12/05/19 06:59 06:59 06:59 Intake Total 1320 Output Total 725 1975 Balance -227 -763 Result Diagrams: 12/03/19 04:26 12/03/19 04:26 Additional Labs: I reviewed patient's labs and MAR EKG Reviewed by me: Yes ( Fuentes up on telemetry) Hospitalist ROS - Review of Systems Constitutional: denies: fever, chills, sweats, weakness, malaise Cardiovascular: reports: palpitations. denies: chest pain, orthopnea, paroxysmal noc. dyspnea, edema, light headedness Skin: denies: rash, lesions, hussein - Medication Medications: Active Medications Generic Name Dose Route Start Last Admin Trade Name Freq PRN Reason Stop Dose Admin Enoxaparin Sodium 100 mg 12/02/19 21:00 12/04/19 08:22 Enoxaparin Sodium 100 Mg/Ml Syringe SC 100 mg 0900,2100 TERRANCE Administration Nitroglycerin 0.5 inch 12/02/19 23:59 12/04/19 15:39 Nitroglycerin 2% Ointment 1 Inch/1 Gm Packet TOP Not Given 0800,1600,2359 TERRANCE Sodium Chloride 10 ml 12/02/19 07:45 12/03/19 20:39 Flush - Normal Saline 10 Ml Syringe IVF 10 ml PRN PRN Administration Saline Flush - Exam General Appearance: awake alert Eye: anicteric sclera ENT: moist mucosa Neck: supple Heart: no rubs, irregular Respiratory: CTAB Gastrointestinal: soft Extremities: no cyanosis Skin: no rashes Musculoskeletal: no muscle wasting Psychiatric: normal affect, normal behavior Hosp A/P (1) Atrial fibrillation with RVR Code(s): I48.91 - UNSPECIFIED ATRIAL FIBRILLATION Status: Acute (2) Hyperlipidemia Code(s): E78.5 - HYPERLIPIDEMIA, UNSPECIFIED Status: Chronic (3) Hypertension Code(s): I10 - ESSENTIAL (PRIMARY) HYPERTENSION Status: Chronic (4) Hypothyroidism Code(s): E03.9 - HYPOTHYROIDISM, UNSPECIFIED Status: Chronic (5) Chest pain Code(s): R07.9 - CHEST PAIN, UNSPECIFIED Status: Resolved - Plan Patient continues to be in atrial fibrillation. Patient to go for electrical cardioversion today. States she is normal. Chronically elevated total bilirubin.
[2019-12-04] MEDS: Flecainide 50 MG TAB PO SCH (20:14)
[2019-12-05] MEDS: Nitroglycerin 2% Ointment 1 INCH/1 GM Packet TOP SCH ×2 (00:47→11:00)
[2019-12-05] MEDS ORDERED: diphenhydrAMINE 30 GM TUBE TOP PRN (06:32)
[2019-12-05 08:03] VITALS: BP 138/92; TEMP 97.9
--- NOTE | 2019-12-05 09:13 | PRG ---
DATE OF SERVICE: SUBJECTIVE: Mr. Christian is doing well today. Wishes to go home. He has no chest pain. OBJECTIVE: VITAL SIGNS: Blood pressure 138/92, pulse in the low 60s. LUNGS: Clear. CARDIAC: Normal S1, normal S2. ABDOMEN: Soft, nontender. EXTREMITIES: There is no edema. ASSESSMENT: 1. Paroxysmal atrial fibrillation, required cardioversion on this occasion. 2. Recent normal stress test. 3. Evidence of diastolic heart failure as evidenced by increased BNP, probably related to rapid heart rate for several days. 4. History of hypertension. PLAN: 1. He is to go home on flecainide 50 mg twice a day. 2. Eliquis 5 mg twice a day. 3. Lisinopril 5 mg a day. 4. Toprol-XL 50 mg a day. 5. Crestor 20 mg a day. 6. See us in the office in about 3 weeks. Job ID: [id number]
[2019-12-05] MEDS: Flecainide 50 MG TAB PO SCH (09:43)
[2019-12-05] MEDS: Enoxaparin Sodium 100 MG/ML SYRINGE SC SCH (09:43)
--- NOTE | 2019-12-05 15:57 | CCLSPC ---
PROCEDURE: Cardioversion. The patient was brought to the post cath area in the fasting state. He was sedated. He was then given 200 joules direct current synchronized energy, converted to sinus bradycardia in the high 50s. CONCLUSION: Successful cardioversion. Current heart rate 55, sinus rhythm. Job ID: [id number]
[2019-12-05] MEDS ORDERED: Apixaban 5 MG TAB PO SCH (21:00)
[2019-12-05] MEDS ORDERED: Rosuvastatin 20 MG TAB PO SCH (21:00)
--- NOTE | 2019-12-06 01:01 | DIS ---
DATE OF ADMISSION: 12/03/2019 DATE OF DISCHARGE: 12/05/2019 PRIMARY CARE PROVIDER: Noble Rainey. DISCHARGE DIAGNOSES: 1. Atrial fibrillation with rapid ventricular response. 2. Chronic hyperbilirubinemia. 3. Coronavirus disease 2019 test was negative. CONDITION OF THE PATIENT ON THE DAY OF DISCHARGE: Stable. I assessed Mr. Christian on the day of discharge. He denies any chest pain or shortness of breath. Vital signs are stable. S1 and S2 are heard, regular. Lungs are clear to auscultation bilaterally. CONSULTATIONS DURING THIS HOSPITALIZATION: Cardiology, Dr. Leary. HOSPITAL COURSE: Mr. Christian is a pleasant 74-year-old gentleman, who was admitted to [facility] on December 03, 2019, for atrial fibrillation with rapid ventricular response. He was seen by Cardiology Service. On December 03, he underwent electrical cardioversion successfully. His Toprol- XL dose was increased to 50 mg daily. He was also started on flecainide 50 mg 2 times a day. Otherwise, no change was made to his pre-admission home medications. POST-ACUTE CARE FOLLOWUP: With primary care provider in 3 days. DIET: Heart-healthy diet. ACTIVITY: No restrictions. DISCHARGE DESTINATION: Home. TOTAL AMOUNT OF TIME SPENT COORDINATING THIS DISCHARGE: 22 minutes. Job ID: [id number] MTDD
[2019-12-06] MEDS ORDERED: Lisinopril 5 MG TAB PO SCH (09:00)
--- NOTE | 2019-12-06 10:06 | PQF ---
CLINICAL DOCUMENTATION CLARIFICATION FORM: Dear : Kory Pardo Date / Time: 12/06/2019 Please exercise your independent, professional judgment in responding to the clarification form. Clinical indicators are provided on the bottom of this form for your review Please check appropriate box(es): DIASTOLIC HEART FAILURE: A. ACUITY [ ] Acute [ ] Acute on Chronic [ x ] Chronic [ ] Other diagnosis [ ] Unable to determine In addition, please specify: Present on Admission (POA): [ x ] Yes [ ] No [ ] Unable to determine To be completed by CDI/Coding staff for physician review: Present Clinical Indicators - Signs / Symptoms / Labs Results and Location in Medical Record [ x ] Evidence of diastolic heart failure as evidenced by increased BNP probably related to rapid heart rate for several days Progress note 12/04 by Analilia Leary MD [ x ] BNP is 723.9 on 12/01 Laboratory [ x ] Ejection fracture is visually estimated at 55-60% Transthoracic echocardiography 12/02 by Analilia Leary MD [ x ] Assessment: Recurrent atrial fibrillation and diastolic heart failure Progress note 12/02 by Analilia Leary MD Present Risk Factors Results and Location in Medical Record [ x ] Atrial fibrillation, CAD Progress note 12/02 by Analilia Leary MD [ x ] Hypertension, hyperlipidemia Progress note 12/03 by Kory Pardo Present Treatments Results and Location in Medical Record [ x ] Transthoracic echocardiogram 12/02 Echocardiogram report [ x ] Chest x-ray 12/01 Chest x-ray/reports [ x ] 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
--- NOTE | 2019-12-14 14:19 | EKG ---
Test Reason : Blood Pressure : / mmHG Vent. Rate : 120 BPM Atrial Rate : 312 BPM P-R Int : 000 ms QRS Dur : 084 ms QT Int : 278 ms P-R-T Axes : 000 -20 082 degrees QTc Int : 392 ms Atrial fibrillation with rapid ventricular response Inferior infarct , age undetermined Abnormal ECG Confirmed by JOHNNY BYNUM ([id number]), book editor DEVIN CRABTREE ([id number]) on 12/14/2019 2:19:33 PM Referred By: Confirmed By:JOHNNY BYNUM
== END 2019-12-05 10:53 | disposition home or self-care (01) | DRG 309 ==
LOC: ERS 05:32 → ERHOLD 07:37 → 2SW 17:05 → OBSVTOIN 12-03 15:01
PROVIDERS: ADMIT Internal Medicine; ATTEND Internal Medicine
PROC: 5A2204Z Restoration of Cardiac Rhythm, Single (ICD-10-PCS; principal; 2019-12-04)
DX: I48.0 Paroxysmal atrial fibrillation (principal); I50.32 Chronic diastolic (congestive) heart failure; Z20.828 Contact with and (suspected) exposure to other viral communicable diseases; E78.5 Hyperlipidemia, unspecified; E03.9 Hypothyroidism, unspecified; I11.0 Hypertensive heart disease with heart failure; R07.9 Chest pain, unspecified; E80.6 Other disorders of bilirubin metabolism; Z79.01 Long term (current) use of anticoagulants; Z79.82 Long term (current) use of aspirin
CPT/HCPCS: 36415; 71045; 80053; 81001; 82550; 83690; 83735; 83880; 84443; 84484; 85025; 87635; 92960; 93005; 93306; 96372; 96374; 96375; 96376; G0378; J1650; J1940; J2001; J2704; J3475; U0003

== ENCOUNTER 2020-03-11 19:00 | Outpatient (CLI) | payer MEDICARE | END 2020-03-11 19:01 | disposition home or self-care (01) | LOC: SLEEPLAB 19:00 | PROVIDERS: ATTEND Internal Medicine Cardiovascular Disease | DX: G47.33 Obstructive sleep apnea (adult) (pediatric) (principal); R53.83 Other fatigue; R06.83 Snoring; E66.9 Obesity, unspecified; I10 Essential (primary) hypertension; G47.10 Hypersomnia, unspecified; I48.91 Unspecified atrial fibrillation; G47.00 Insomnia, unspecified; Z68.30 Body mass index [BMI] 30.0-30.9, adult | CPT/HCPCS: 95810 ==

== ENCOUNTER 2020-03-19 19:30 | Outpatient (CLI) | payer MEDICARE | END 2020-03-19 19:31 | disposition home or self-care (01) | LOC: SLEEPLAB 19:30 | PROVIDERS: ATTEND Internal Medicine Cardiovascular Disease | DX: G47.33 Obstructive sleep apnea (adult) (pediatric) (principal); R06.83 Snoring; I10 Essential (primary) hypertension; R09.89 Other specified symptoms and signs involving the circulatory and respiratory systems; R53.82 Chronic fatigue, unspecified; G47.10 Hypersomnia, unspecified; E66.9 Obesity, unspecified; Z68.30 Body mass index [BMI] 30.0-30.9, adult | CPT/HCPCS: 95811 ==

== ENCOUNTER 2022-11-28 09:21 | Outpatient (CLI) | payer MEDICARE | END 2022-11-28 09:22 | disposition home or self-care (01) | LOC: SCSRAD 09:21 | PROVIDERS: ATTEND Urology | DX: N20.0 Calculus of kidney (principal) | CPT/HCPCS: 74018 ==

== ENCOUNTER 2023-05-19 08:26 | Outpatient (CLI) | payer MEDICARE | END 2023-05-19 08:27 | disposition home or self-care (01) | LOC: SCSRAD 08:26 | PROVIDERS: ATTEND Urology | DX: N20.0 Calculus of kidney (principal); R19.5 Other fecal abnormalities; M89.9 Disorder of bone, unspecified | CPT/HCPCS: 74018 ==